=== PATIENT | male | born 1970 | race Two or more races ===

== ENCOUNTER 2022-05-19 01:46 | Emergency (ER) | payer MEDICAID, OTHER ==
[~2022-05-19] VITALS: Ht 170.2 cm; Wt 84.8 kg
--- NOTE | 2022-05-19 02:45 | NUR ---
TO ER BED 2. RUDDY APA [id number] FROM [facility] C/O LOWER BACK PAIN 05/24. S/P FALL ON TUESDAY. PT IS ALERT AND ORIENTED. RR EVEN AND NON LABORED. CONNECTED TO MONITOR
[2022-05-19] MEDS ORDERED: HYDROCODONE/APAP 5/325MG TABLET ONE (02:55)
[2022-05-19] MEDS ORDERED: HYDROCODONE/APAP 5/325MG TABLET PO ONE (03:00)
--- NOTE | 2022-05-19 03:14 | NUR ---
PT TAKEN TO CT VIA [facility]
--- NOTE | 2022-05-19 03:35 | NUR ---
PT RETURNED TO ER BED [address]
--- NOTE | 2022-05-19 05:36 | NUR ---
TRANSFER SETUP TO [facility] ETA 2-2 1/2 HOURS
--- NOTE | 2022-05-19 06:39 | NUR ---
REPORT GIVEN TO TARAN FROM [facility] FOR [facility]
[2022-05-19 08:25] VITALS: BP 135/88
--- NOTE | 2022-05-19 08:26 | NUR ---
brittani picked up by private ambulance in no distress going back to [facility].
== END 2022-05-19 08:26 ==
LOC: ER 01:50
DX: M54.50 Low back pain, unspecified (principal); E11.9 Type 2 diabetes mellitus without complications
CPT/HCPCS: 72131-TC